=== PATIENT | male | born 1995 | race Caucasian/White ===

== ENCOUNTER 2016-09-13 07:49 | Emergency (ER) | payer OTHER ==
[~2016-09-13] VITALS: Ht 190.5 cm; Wt 80.0 kg
[2016-09-13 08:00] VITALS: BP 121/74; PULSE 85; RESP 15; TEMP 98; O2SAT 99
[2016-09-13 08:01] VITALS: BP 121/74; PULSE 85; RESP 19; TEMP 98; O2SAT 99
[2016-09-13] MEDS ORDERED: SODIUM CHLOR 0.9% 1000 ML INJ 1,000 ML IV SCH (08:23)
[2016-09-13] MEDS ORDERED: SODIUM CHLORIDE 0.9% FLUSH 5 ML FLUSH IVF PRN (08:30)
--- NOTE | 2016-09-13 08:38 | PD ---
HPI Chief Complaint: Alcohol/Drug Intoxication Time Seen by Provider: 08:02 Travel History International Travel<30 days: No Contact w/Intl Traveler<30days: No Traveled to known affect area: No History of Present Illness HPI Patient 20-year-old male who was "hitting the town" last night and drinking. Apparently he was found on the sidewalk altered intoxicated and was transferred to the emergency department under [facility] act for evaluation. Patient on arrival is pleasantly intoxicated. He is asking if anybody in the emergency Department is single. He does have an abrasion on the left side of his face but denies any physical complaints. Denies any headache neck pain back pain abdominal pain chest pain nausea vomiting diarrhea. PFSH Past Medical History Medical History: Denies Significant Hx Diminished Hearing: No Tetanus Vaccination: Unknown Influenza Vaccination: No Past Surgical History Other Surgery: Yes (L FOOT SURGERY ) Social History Alcohol Use: Yes (occasionally ) Tobacco Use: Yes (1 ppd) Substance Use: Yes (marijuana- last use last night ) Allergies-Medications (Allergen,Severity, Reaction): Coded Allergies: Ativan (Verified Allergy, Unknown, syncopal episodes and hallucination , ) Reported Meds & Prescriptions Reported Meds & Active Scripts Active No Active Prescriptions or Reported Medications Review of Systems Except as stated in HPI: all other systems reviewed are Neg Physical Exam Narrative Patient was examined with nurse panel lay up worker present at all times. GENERAL: Well-developed well-nourished, pleasantly intoxicated. SKIN: Warm and dry. Other than below the Remainder of head to toe skin examination shows no wounds abrasions or bruises. HEAD: No dawkins signs no raccoons eyes, there is a an abrasion over the left maxilla. Normocephalic. EYES: Pupils equal and round. No scleral icterus. No injection or drainage. ENT: No nasal bleeding or discharge. Mucous membranes pink and moist. NECK: Trachea midline. No JVD. No midline CT or L-spine tenderness. CARDIOVASCULAR: Regular rate and rhythm. No murmur appreciated. RESPIRATORY: No accessory muscle use. Clear to auscultation. Breath sounds equal bilaterally. GASTROINTESTINAL: Abdomen soft, non-tender, nondistended. Hepatic and splenic margins not palpable. MUSCULOSKELETAL: No obvious deformities. No clubbing. No cyanosis. No edema. NEUROLOGICAL: Awake and alert. No obvious cranial nerve deficits. Motor grossly within normal limits. Normal speech. PSYCHIATRIC: Appropriate mood and affect; insight and judgment normal. Data Data Last Documented VS Vital Signs Date Time Temp Pulse Resp B/P Pulse Ox O2 Delivery O2 Flow Rate FiO2 09/13/16 17:20 72 17 130/80 97 09/13/16 09:16 Room Air 09/13/16 08:01 98.0 Orders Basic Metabolic Panel (Bmp) (09/13/16 08:23) Alcohol (Ethanol) (09/13/16 08:23) Complete Blood Count With Diff (09/13/16 08:23) Iv Access Insert/Monitor (09/13/16 08:23) Ecg Monitoring (09/13/16 08:23) Oximetry (09/13/16 08:23) Sodium Chlor 0.9% 1000 Ml Inj (Ns 1000 M (09/13/16 08:23) Sodium Chloride 0.9% Flush (Ns Flush) (09/13/16 08:30) Apply Cervical Collar (09/13/16 08:57) Labs Laboratory Tests Test 09/13/16 08:25 White Blood Count 9.2 TH/MM3 Red Blood Count 4.94 MIL/MM3 Hemoglobin 15.3 GM/DL Hematocrit 44.6 % Mean Corpuscular Volume 90.3 FL Mean Corpuscular Hemoglobin 30.9 PG Mean Corpuscular Hemoglobin 34.3 % Concent Red Cell Distribution Width 13.8 % Platelet Count 215 TH/MM3 Mean Platelet Volume 10.5 FL Neutrophils (%) (Auto) 60.1 % Lymphocytes (%) (Auto) 28.7 % Monocytes (%) (Auto) 8.4 % Eosinophils (%) (Auto) 1.9 % Basophils (%) (Auto) 0.9 % Neutrophils # (Auto) 5.5 TH/MM3 Lymphocytes # (Auto) 2.6 TH/MM3 Monocytes # (Auto) 0.8 TH/MM3 Eosinophils # (Auto) 0.2 TH/MM3 Basophils # (Auto) 0.1 TH/MM3 CBC Comment DIFF FINAL Differential Comment Sodium Level 144 MEQ/L Potassium Level 3.7 MEQ/L Chloride Level 109 MEQ/L Carbon Dioxide Level 25.8 MEQ/L Anion Gap 9 MEQ/L Blood Urea Nitrogen 9 MG/DL Creatinine 0.87 MG/DL Estimat Glomerular Filtration 112 ML/MIN Rate Random Glucose 99 MG/DL Calcium Level 8.5 MG/DL Ethyl Alcohol Level 216 MG/DL MDM Medical Decision Making Medical Screen Exam Complete: Yes Emergency Medical Condition: Yes Differential Diagnosis Head injury, neck injury unlikely, alcohol intoxication, facial abrasion. Narrative Course Patient notably intoxicated on arrival, c-collar was placed. Patient had head and C-spine ordered however patient is awake enough to state that cost a lot of money and he didn't want to have it done. He is calm and cooperative and explained to him that he'll have to wait until sobriety which may be 8-10 hours before the c-collar is removed and I'm comfortable discharging him without a CAT scan. He agreed to this course of action. Patient was observed in the emergency department for 9.5 hours, at which time he was assessed and he was clinically sober. Assuming a modest 20 mg to 25 mg/ dL per hour metabolizing rate patient's alcohol is somewhere between 0 and 26 mg /dL at this time. He ambulated to bathroom multiple times. His c-collar was removed at that time. Discussed alcohol ingestion and its risks and safety while drinking. He was discharged to self-care. Diagnosis Primary Impression: Alcohol intoxication Qualified Code: F10.120 - Alcohol intoxication, uncomplicated Patient Instructions: Abuse of Alcohol (DC), General Instructions Scripts No Active Prescriptions or Reported Meds Disposition: 01 DISCHARGE HOME Condition: Stable Pascual Kelly MD Sep 13, 2016 08:38
[2016-09-13 08:43] LABS: AUTOMATED NEUTROPHIL # 5.5 TH/MM3 (1.8-7.7); BASOPHIL # 0.1 TH/MM3 (0-0.2); BASOPHIL % 0.9 % (0.0-2.0); EOSINOPHIL # 0.2 TH/MM3 (0-0.4); EOSINOPHIL % 1.9 % (0.0-4.0); HEMATOCRIT 44.6 % (39.0-51.0); HEMO FLAGS DIFF FINAL; LYMPH % 28.7 % (9.0-44.0); LYMPHOCYTE # 2.6 TH/MM3 (1.0-4.8); MEAN CELL VOLUME 90.3 FL (80.0-100.0); MEAN CORPUSCULAR HEMOGLOBIN 30.9 PG (27.0-34.0); MEAN CORPUSCULAR HGB CONC 34.3 % (32.0-36.0); MONO % 8.4 % (0.0-8.0); NEUT % 60.1 % (16.0-70.0); PLATELET COUNT 215 TH/MM3 (150-450); RED BLOOD COUNT 4.94 MIL/MM3 (4.50-5.90); RED CELL DISTRIBUTION WIDTH 13.8 % (11.6-17.2); WHITE BLOOD COUNT 9.2 TH/MM3 (4.0-11.0)
[2016-09-13 09:06] LABS: BICARBONATE 25.8 MEQ/L (21.0-32.0); POTASSIUM 3.7 MEQ/L (3.5-5.1)
[2016-09-13 17:20] VITALS: BP 130/80
== END 2016-09-13 17:20 | disposition home or self-care (01) ==
LOC: NEPC 07:49
DX: F10.120 Alcohol abuse with intoxication, uncomplicated (principal); Y90.7 Blood alcohol level of 200-239 mg/100 ml; S00.91XA Abrasion of unspecified part of head, initial encounter; X58.XXXA Exposure to other specified factors, initial encounter; Y93.9 Activity, unspecified; Y92.9 Unspecified place or not applicable; Y99.9 Unspecified external cause status
CPT/HCPCS: 80048; 80307; 85025; 96360; 99284; J7030